=== PATIENT | male | born 1985 | race Caucasian/White ===

== ENCOUNTER 2017-04-02 11:17 | Day surgery (SDC) | payer BC ==
[2017-04-02] MEDS ORDERED: Lidocaine 1%/Sod Bicarbonate in NS 8.4% 1 ML Syringe IV PRN (12:29)
[2017-04-02] MEDS ORDERED: Sodium Chloride 0.9% 10 ML Syringe FLUSH PRN (12:29)
[2017-04-02] MEDS ORDERED: Lactated Ringers 1,000 ML IV SCH (12:30)
[2017-04-02] MEDS ORDERED: Lidocaine 1% with EPINEPHrine 1:100,000 20 ML MDV ONE (12:31)
[2017-04-02] MEDS ORDERED: Bupivacaine 0.5% 30 ML SDV ONE (12:32)
--- NOTE | 2017-04-02 12:35 | PCM.HP ---
H&P History of Present Illness - General Date of Service: 04/02/17 Admit Problem/Dx: Acute appendicitis Source of Information: Patient History Limitations: Reports: No Limitations - History of Present Illness Initial Comments - Free Text/Narative: 32 year old male who was evaluated 04/01/17 by the [facility]. He had a CT scan of abdomen pelvis with the following impression, "Prominent appendix with mucosal hyperenhancement. Appendiceal diameter = 7 mm, at the upper limits of normal. Minimal associated fat stranding. Findings may be seen with early acute appendicitis." He did have a CBC and CMP that were normal. He was referred for further evaluation. He reports he has had intermittent RLQ pain for the last couple of weeks. He reports it seems worse the last couple of days. He reports his general abdomen just seems more tender the last couple of days. He reports that if he will move wrong he will have pain in the RLQ. He reports that when he eats this worsens the RLQ pain. He reports he will have abdominal pressure, generally when he eats. he reports he will have a RLQ pain that is sharp/stabbing and an 8/10 after eating. He no longer feels like eating. He last ate last night. Last had water around 0600 today. He denies any fever, chills, night sweats, nausea, vomiting, constipation. He is passing gas. He did also have diarrhea the last couple of weeks off and on. He will have 1-2 diarrhea stools when this occurs. He was given Rocephin and Azithromycin in February, for chlamydial exposure. He denies any prior surgeries or medical conditions. He denies he takes any vitamins, supplements or any illicit drug use. He denies any bleeding or clotting disorders. No history of anesthesia. No family hx of bleeding/clotting disorders or family hx of anesthesia complications. Onset of Symptoms: Reports: Other Duration of Symptoms: Reports: Intermittent Location: Reports: Lower Extremity, Right Quality: Reports: Sharp, Stabbing Worsens with: Reports: Movement Right Lower Abdomen Pain Score (Numeric/FACES): 2 - Related Data Allergies/Adverse Reactions: Allergies Allergy/AdvReac Type Severity Reaction Status Date / Time No Known Allergies Allergy Verified 04/02/17 11:28 Home Medications: Home Meds . [No Known Home Meds] 04/02/17 [History] Past Medical History - Past Health History Medical/Surgical History: Denies Medical/Surgical History HEENT History: Reports: None Cardiovascular History: Reports: None Respiratory History: Reports: None Gastrointestinal History: Reports: None Genitourinary History: Reports: None Musculoskeletal History: Reports: None Neurological History: Reports: None Social & Family History - Family History Cardiac: Reports: CAD (father and paternal grandfather), AL (father at age 65) Neurological: Reports: CVA (maternal grandmother) Oncologic: Reports: Skin (mother) - Tobacco Use Smoking Status *Q: Current Every Day Smoker Years of Tobacco use: 14 Packs/Tins Daily: 0.3 - Caffeine Use Caffeine Use: Reports: Coffee - Alcohol Use Alcohol Use History: Yes Days Per Week of Alcohol Use: 2 Number of Drinks Per Day: 5 Total Drinks Per Week: 10 - Recreational Drug Use Recreational Drug Use: No H&P Review of Systems - Review of Systems: Review Of Systems: See Below General: Reports: Decreased Appetite. Denies: Fever, Chills, Night Sweats, Diaphoresis HEENT: Reports: No Symptoms Pulmonary: Reports: No Symptoms, Other (reports snores, may have sleep apnea; no formal sleep study completed). Denies: Shortness of Breath, Wheezing Cardiovascular: Reports: No Symptoms. Denies: Chest Pain, Palpitations, Orthopnea Gastrointestinal: Reports: Abdominal Pain (see hpi), Diarrhea (off and on 1 to 2 when occurs). Denies: Black Stool, Bloody Stool, Hematochezia, Melena Genitourinary: Reports: No Symptoms. Denies: Dysuria, Frequency, Burning, Pain Musculoskeletal: Reports: No Symptoms Skin: Reports: No Symptoms Psychiatric: Reports: No Symptoms Neurological: Reports: No Symptoms Hematologic/Lymphatic: Reports: No Symptoms Immunologic: Reports: No Symptoms, Other (allergic to detergents) Exam - Exam Exam: See Below - Vital Signs Vital Signs: Last Vital Signs Temp 98.5 F 04/02/17 11:24 Pulse 80 04/02/17 11:24 Resp 18 04/02/17 11:24 BP 133/69 04/02/17 11:24 Pulse Ox 98 04/02/17 11:24 Weight: 91.626 kg - Exam General: Alert, Oriented, Cooperative HEENT: Conjunctiva Clear Lungs: Clear to Auscultation, Normal Respiratory Effort Cardiovascular: Regular Rate, Regular Rhythm, Normal S1, Normal S2 Abdomen: Normal Bowel Sounds, Soft, Tenderness. No: Distention, Guarding (RLQ with deep palpation ) Extremities: Normal Inspection. No: Clubbing, Calf Tenderness, Edema Skin: Warm, Dry, Intact Neuro Extensive - Mental Status: Alert, Oriented x3, Normal Mood/Affect, Normal Cognition, Memory Intact Psychiatric: Alert, Normal Affect, Normal Mood *Q Meaningful Use (ADM) - VTE *Q VTE Criteria *Q: - Stroke *Q Stroke Criteria *Q: - AMI *Q AMI Criteria *Q: - Problem List (1) Appendicitis, acute SNOMED Code(s): 48358693 ICD Code: K35.80 - UNSPECIFIED ACUTE APPENDICITIS Status: Acute Current Visit: Yes Qualifiers: Acute appendicitis type: unspecified acute appendicitis type Qualified Code (s): K35.80 - Unspecified acute appendicitis Problem List Initiated/Reviewed/Updated: Yes Assessment/Plan Comment:: 32 year old male with acute appendicitis He denies exertional chest pain or shortness of breath Plan: We discussed laparoscopic appendectomy for treatment of acute appendicitis. We discussed risks of the procedure including pain, bleeding, infection, need for additional procedures, damage to surrounding structures including. We reviewed the post-operative lifting restrictions of no more than 20 lbs for 4 weeks. The patient's questions were answered. This patient was evaluated with Dr. Lord, plan formulated above by Dr. Pop Abdi, RADHA scribing for Dr. Rita Lord
[2017-04-02] MEDS ORDERED: Rocuronium 50 MG/5 ML Vial ONE (12:45)
[2017-04-02] MEDS ORDERED: Ondansetron 4 MG/2 ML SDV ONE (12:45)
[2017-04-02] MEDS ORDERED: Ertapenem 1 GM in Sodium Chloride 0.9% 100 ML IV ONE (12:45)
[2017-04-02] MEDS ORDERED: Propofol 200 MG/20 ML SDV ONE (12:46)
[2017-04-02] MEDS ORDERED: Midazolam 1 MG/ML 2 ML SDV ONE (12:46)
[2017-04-02] MEDS ORDERED: Lidocaine 1% 4 ML ONE (12:46)
[2017-04-02] MEDS ORDERED: fentaNYL 250 MCG/5 ML SDV ONE (12:46)
--- NOTE | 2017-04-02 12:53 | PCM.PREANE ---
Preanesthetic Assessment - Anesthesia/Transfusion/Family Hx Anesthesia History: Prior Anesthesia Without Reaction Type of Anesthesia Reaction: Unknown Family History of Anesthesia Reaction: No Transfusion History: Unknown - Review of Systems General: No Symptoms Pulmonary: Other (current smoker) Cardiovascular: No Symptoms Gastrointestinal: No symptoms Neurological: No Symptoms Other: Reports: None - Physical Assessment NPO Status Date: 04/02/17 NPO Status Time: 06:00 Pulse: 57 O2 Sat by Pulse Oximetry: 99 Respiratory Rate: 16 Blood Pressure: 133/75 Vital Signs: Last Vital Signs Temp 98.3 C H 04/02/17 12:20 Pulse 57 L 04/02/17 12:20 Resp 16 04/02/17 12:20 BP 133/65 04/02/17 12:20 Pulse Ox 99 04/02/17 12:20 Height: 1.85 m Weight: 91.626 kg ASA Class: 2 Mental Status: Alert & Oriented x3 Airway Class: Mallampati = 1 Dentition: Reports: Normal Dentition Thyro-Mental Finger Breadths: 3 Mouth Opening Finger Breadths: 3 ROM/Head Extension: Full Lungs: Normal respiratory effort, Crackles Cardiovascular: Regular Rate, Regular Rhythm - Allergies Allergies/Adverse Reactions: Allergies Allergy/AdvReac Type Severity Reaction Status Date / Time No Known Allergies Allergy Verified 04/02/17 11:28 - Blood Blood Available: No Product(s) Available: None - Anesthesia Plan Pre-Op Medication Ordered: None - Acknowledgements Anesthesia Type Planned: General Anesthesia Pt an Appropriate Candidate for the Planned Anesthesia: Yes Alternatives and Risks of Anesthesia Discussed w Pt/Guardian: Yes Pt/Guardian Understands and Agrees with Anesthesia Plan: Yes PreAnesthesia Questionnaire - Past Health History Medical/Surgical History: Denies Medical/Surgical History HEENT History: Reports: None Cardiovascular History: Reports: None Respiratory History: Reports: None Gastrointestinal History: Reports: None Genitourinary History: Reports: None Musculoskeletal History: Reports: None Neurological History: Reports: None - SUBSTANCE USE Smoking Status *Q: Current Every Day Smoker Tobacco Use Within Last Twelve Months: Cigarettes Recreational Drug Use History: No - HOME MEDS Home Medications: Home Meds . [No Known Home Meds] 04/02/17 [History] - CURRENT (IN HOUSE) MEDS Current Meds: Current Medications Lactated Ringer's (Ringers, Lactated) 1,000 mls @ 125 mls/hr IV ASDIRECTED PUSHPA Stop: 04/02/17 23:00 Last Admin: 04/02/17 12:30 Dose: 125 mls/hr Ertapenem 1 gm/ Sodium (Chloride) 100 mls @ 100 mls/hr IV ONETIME ONE Stop: 04/02/17 13:44 Lidocaine/Sodium Bicarbonate (Buffered Lidocaine 1% In Ns 8.4%) 0.25 ml IV ONETIME PRN PRN Reason: Prior to IV Start Stop: 04/02/17 18:00 Sodium Chloride (Saline Flush) 10 ml FLUSH ASDIRECTED PRN PRN Reason: Keep Vein Open Stop: 04/02/17 18:00 Discontinued Medications Bupivacaine HCl (Marcaine 0.5%) Confirm Administered Dose 30 ml .ROUTE .STK-MED ONE Stop: 04/02/17 12:33 Fentanyl (Sublimaze) Confirm Administered Dose 250 mcg .ROUTE .STK-MED ONE Stop: 04/02/17 12:47 Lidocaine HCl (Xylocaine-Mpf 1%) Confirm Administered Dose 4 mls @ as directed .ROUTE .STK-MED ONE Stop: 04/02/17 12:47 Lidocaine/Epinephrine (Xylocaine 1% With Epinephrine 1:100,000) Confirm Administered Dose 20 ml .ROUTE .STK-MED ONE Stop: 04/02/17 12:32 Midazolam HCl (Versed 1 Mg/Ml) Confirm Administered Dose 2 mg .ROUTE .STK-MED ONE Stop: 04/02/17 12:47 Ondansetron HCl (Zofran) Confirm Administered Dose 4 mg .ROUTE .STK-MED ONE Stop: 04/02/17 12:46 Propofol (Diprivan 20 Ml) Confirm Administered Dose 200 mg .ROUTE .STK-MED ONE Stop: 04/02/17 12:47 Rocuronium [place] (Zemuron) Confirm Administered Dose 50 mg .ROUTE .STK-MED ONE Stop: 04/02/17 12:46
[2017-04-02] MEDS ORDERED: Dexamethasone 4 MG/ML SDV ONE (13:28)
[2017-04-02] MEDS ORDERED: Ketorolac 30 MG/ML SDV ONE (13:28)
[2017-04-02] MEDS ORDERED: Neostigmine Methylsulfate 1 MG/ML 5 ML Syringe ONE (13:29)
[2017-04-02] MEDS ORDERED: fentaNYL 100 MCG/2 ML SDV ONE (14:16)
[2017-04-02] MEDS ORDERED: diphenhydrAMINE 50 MG/ML SDV IVPUSH PRN (14:18)
[2017-04-02] MEDS ORDERED: fentaNYL 100 MCG/2 ML SDV IVPUSH PRN (14:18)
[2017-04-02] MEDS ORDERED: Meperidine PF 50 MG/ML Syringe IM PRN (14:18)
--- NOTE | 2017-04-02 14:21 | PCM.POSTAN ---
POST ANESTHESIA ASSESSMENT - MENTAL STATUS Mental Status: alert, oriented - VITAL SIGNS Pulse Rate: 84 SaO2: 94 Resp Rate: 14 Blood Pressure: 138/89 Temperature: 36.8 C - RESPIRATORY Respiratory Status: respiratory rate WNL, airway patent, O2 saturation stable - CARDIOVASCULAR CV Status: pulse rate WNL, blood pressure stable - GASTROINTESTINAL GI Status: no symptoms - PAIN Pain Score: 0 - POST OP HYDRATION Hydration Status: adequate & stable
--- NOTE | 2017-04-02 14:45 | PCM.OPNOTE ---
- General Post-Op/Procedure Note Date of Surgery/Procedure: 04/02/17 Operative Procedure(s): Laparoscopic appendectomy with incidental primary umbilical hernia repair Pre Op Diagnosis: Possible acute appendicitis, small umbilical hernia Post-Op Diagnosis: Same Anesthesia Technique: General ET tube, Local Primary Surgeon: Rita Lord Anesthesia Provider: Clem Perez Professor Of Sociology: Radha Abdi Pathology: Appendix Fluid Replacement, Intraop: 1,200 (mL crystalloid ) EBL in mLs: 2 Complications: None Condition: Good Free Text/Narrative:: INDICATION FOR PROCEDURE: The patient is a 32-year-old man who had been referred to me by USMAN Alegria for evaluation for acute appendicitis. She had evaluated the patient at the [facility] on 04/01 in the evening and his symptoms had not improved by the following day, when she had contacted me about the patient. I discussed with the patient performing a laparoscopic appendectomy and associated risks of the procedure. The patient found these risks acceptable and agreed to proceed. DESCRIPTION OF PROCEDURE: The patient was taken to the operating room and placed in the supine position. Sequential compressive devices were placed on the bilateral lower extremities. After induction of general endotracheal anesthesia, the abdomen was prepped and draped in the usual sterile fashion. The left arm had been tucked at the patient 's side and pressure points adequately padded. Treatment antibiotics in the form of Invanz had been administered as per protocol for planned outpatient care. A curvilinear supraumbilical incision was made using a scalpel. There was a 1 cm umbilical hernia defect, incarcerated omentum was released with the Harmonic scalpel and the abdomen was bluntly entered through the defect using a hemostat. An 0 Vicryl stay suture was placed. A Travis cannula was introduced into the abdomen and the abdomen was insufflated to 15 mm of mercury. The abdomen was then surveyed. The appendix was slightly dilated, but not erythematous. Two additional 5 mm trocars were then placed under direct visualization after first injecting local anesthetic, one in the suprapubic region and one in the left lower quadrant. The appendix was then dissected at the base of the cecum. A mesenteric window was created using a [place]. The appendiceal base was then taken at the cecum using a white load Endo JOSE M stapler. The appendiceal mesentery was taken using the Harmonic scalpel. The appendix was placed into a Endo Catch bag. The abdomen was suctioned and irrigated. Hemostasis was confirmed. The 5 mm trocars were removed with no evidence of bleeding. The Travis cannula and appendix within the EndoCatch bag were then removed. The patient's umbilical hernia defect was closed using an 0 Vicryl suture. The umbilical skin was tacked to the fascia using 4-0 Monocryl suture. Additional local anesthetic was injected sonja-incisionally. The incisions were then closed using subcuticular 4-0 Monocryl suture. Dermabond was placed over the patient's skin incisions. A cotton ball and Tegaderm were applied to the umbilicus. The patient was then awakened from anesthesia, extubated, and transferred to the recovery room in stable condition having tolerated the procedure well. Sponge and instrument counts were reported as correct at the end of the case. POSTOPERATIVE PLAN: I discussed my intraoperative findings and post-operative care instructions with the patient. The patient will be discharged home today. Prescriptions for Percocet 5/325mg and Zofran ODT were given. The patient will follow up in 2 weeks for a post-operative check. They are not lift over 20 pounds for the next 4 weeks. They are to call the office with any questions or concerns. The skilled assistance of my surgical coordinator, USMAN Erazo, was necessary because a qualified resident was not available. She participated in positioning of the patient, assistance with the procedure, assistance with wound closure, and dressing application.
[2017-04-02] MEDS ORDERED: Meperidine PF 50 MG/ML Syringe IVPUSH PRN (15:30)
[2017-04-02] MEDS ORDERED: Acetaminophen/oxyCODONE 325-5 MG Tab PO ONE (15:35)
[2017-04-02] MEDS ORDERED: HYDROmorphone 0.5 MG/0.5 ML Syringe IVPUSH PRN (15:40)
[2017-04-02 16:59] VITALS: BP 127/79
== END 2017-04-02 16:45 | disposition home or self-care (01) ==
LOC: JD.ED 11:17 → JD.SDS 12:14
PROVIDERS: ATTEND Surgery
DX: K35.80 Unspecified acute appendicitis (principal); F17.210 Nicotine dependence, cigarettes, uncomplicated; Z79.899 Other long term (current) drug therapy
CPT/HCPCS: 44970; A9270; J1100; J1170; J1335; J1885; J2250; J2405; J2710; J3010; J7030; J7120; 00840; 99285; J2704